=== PATIENT | male | born 1990 | race Caucasian/White ===

== ENCOUNTER 2019-06-04 06:44 | Day surgery (SDC) | payer OTHER ==
[2019-06-04] MEDS ORDERED: Lidocaine 2% 5 ML SDV IV ONE (06:45)
[2019-06-04] MEDS ORDERED: Propofol 200 MG/20 ML SDV IV ONE (06:45)
[2019-06-04] MEDS ORDERED: Sodium Chloride 0.9% 10 ML Syringe FLUSH PRN (06:45)
[2019-06-04] MEDS ORDERED: Lactated Ringers 1,000 ML IV SCH (06:45)
--- NOTE | 2019-06-04 08:56 | PCM.OPNOTE ---
- General Post-Op/Procedure Note Date of Surgery/Procedure: 06/04/19 Operative Procedure(s): egd with bx Findings: gastritis esophagitis with irregular z line Pre Op Diagnosis: gerd Post-Op Diagnosis: gastritis. esophagitis with irregular z line Anesthesia Technique: MAC Primary Surgeon: Venkatesh Disla Anesthesia Provider: Unique Kaplan Pathology: stomach and esophagus Complications: None Condition: Good Free Text/Narrative:: see dictation
--- NOTE | 2019-06-04 13:51 | OR ---
DATE OF OPERATION: 06/04/2019 SURGEON: Venkatesh Disla MD PROCEDURE PERFORMED: Esophagogastroduodenoscopy with cold forceps biopsy. PREOPERATIVE DIAGNOSIS: Longstanding history of gastroesophageal reflux disease. POSTOPERATIVE DIAGNOSIS: Gastritis, esophagitis, with an irregular Z-line. INDICATIONS FOR PROCEDURE: This is a 29-year-old white male who presents with the above-mentioned complaints. He was offered and accepted an upper endoscopy. DESCRIPTION OF PROCEDURE: After an excellent IV sedation was administered, the bite block was inserted and flexible endoscope was passed without difficulty down the patient's esophagus. Stomach was insufflated. Scope passed through the pylorus to the second portion of duodenum and slowly withdrawn. The following findings were noted: Duodenum was unremarkable. Stomach demonstrated some mild gastritis especially in the epigastrium. GE junction measured at 40 cm. There appears to be some esophagitis, as well as some intestinal metaplasia, with an irregular Z-line extending approximately a centimeter above. Several biopsies were taken circumferentially. The remainder of the esophageal exam was unremarkable. Stomach was deflated, and the scope was removed. Patient tolerated the procedure well and was taken to recovery. /[id number] /MODL
== END 2019-06-04 09:15 | disposition home or self-care (01) ==
LOC: FB.SDS 06:44
PROVIDERS: ATTEND Surgery
DX: K21.0 Gastro-esophageal reflux disease with esophagitis (principal); K29.50 Unspecified chronic gastritis without bleeding; K22.8 Other specified diseases of esophagus; Z88.0 Allergy status to penicillin; Z79.899 Other long term (current) drug therapy
CPT/HCPCS: 00731; 43239; 88305; 88313; 88342; J2001; J2704; J7120

== ENCOUNTER 2019-06-12 17:31 | Emergency (ER) | payer OTHER ==
[2019-06-12] MEDS ORDERED: Acetaminophen/HYDROcodone 325-5 MG Tab PO ONE (17:32)
[2019-06-12] MEDS ORDERED: Sodium Chloride 0.9% 10 ML Syringe FLUSH PRN (17:40)
[2019-06-12] MEDS ORDERED: Ketorolac 30 MG/ML SDV IVPUSH ONE (17:41)
[2019-06-12] MEDS ORDERED: Ondansetron 4 MG/2 ML SDV IVPUSH ONE (17:41)
[2019-06-12] MEDS ORDERED: Sodium Chloride 0.9% 1,000 ML IV ONE (17:41)
[2019-06-12] MEDS ORDERED: HYDROmorphone 2 MG/ML SDV IVPUSH ONE (17:41)
--- NOTE | 2019-06-12 17:52 | EDM.PDOC ---
ED HPI GENERAL MEDICAL PROBLEM - General Stated Complaint: KIDNEY STONE? Time Seen by Provider: 06/12/19 17:38 Source of Information: Reports: Patient History Limitations: Reports: No Limitations - History of Present Illness INITIAL COMMENTS - FREE TEXT/NARRATIVE: 29-year-old male with history of recent right-sided kidney stone that was removed 2 weeks ago at [facility] in [facility]. He had a stent placed at that time and today at approximately 3 PM he had the stent removed at [facility] in [place]. He states he had some mild discomfort initially in his back but it was not really significant nor was it much more than he had had before with the stent in place. He was able to urinate after this stent was removed and had no problems with that. Approximately 4:30 PM, developed pain in his right mid back and flank area that was similar to the pain that he had had with his kidney stone before. It quickly became quite severe with a 10/10 level of pain at its worst. It was a dull aching pain with sharp spikes of pain. It was colicky in nature. He had no nausea or vomiting associated with this. He was having pretty profuse diaphoresis associated with this. No fevers or chills. He had had no symptoms prior to this. There are no other associated signs or symptoms. There are no other modifying factors. 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) (Nothing) - Related Data Allergies Allergy/AdvReac Type Severity Reaction Status Date / Time amoxicillin Allergy Anaphylactic Verified 06/04/19 07:09 Shock Penicillins Allergy Wheezing Verified 06/04/19 07:09 Home Meds: Home Meds Acetaminophen 1,000 mg PO Q4H PRN 06/03/19 [History] Omeprazole 10 mg PO DAILY 06/03/19 [History] Hydrocodone/Acetaminophen [[place] 5-325 Tablet] 1 - 2 tab PO Q6H PRN #6 tablet [Rx] Past Medical History Gastrointestinal History: Reports: GERD Genitourinary History: Reports: Renal Calculus Psychiatric History: Reports: Anxiety - Past Surgical History GI Surgical History: Reports: EGD Female Surgical History: Reports: Cystoscopy (With stent placed), Kidney stone extraction Social & Family History - Tobacco Use Smoking Status *Q: Current Every Day Smoker - Caffeine Use Caffeine Use: Reports: None - Alcohol Use Alcohol Use History: Yes Alcohol Use Frequency: Socially ("Weekends") - Living Situation & Occupation Living situation: Reports: Occupation: Employed ED ROS GENERAL - Review of Systems Review Of Systems: See Below Constitutional: Reports: Diaphoresis HEENT: Reports: No Symptoms Respiratory: Reports: No Symptoms Cardiovascular: Reports: No Symptoms GI/Abdominal: Reports: No Symptoms : Reports: Flank Pain (Right upper flank and mid back) Musculoskeletal: Reports: Back Pain (Righted back pain) Skin: Reports: Diaphoresis Neurological: Reports: No Symptoms Hematologic/Lymphatic: Reports: No Symptoms Immunologic: Reports: No Symptoms ED EXAM, RENAL/ - Physical Exam Exam: See Below Exam Limited By: No Limitations General Appearance: Alert, WD/WN, Moderate Distress (to severe distress) Eye Exam: Bilateral Eye: EOMI, Normal Inspection, PERRL Ears: Normal External Exam, Hearing Grossly Normal Nose: Normal Inspection, Normal Mucosa, No Blood Throat/Mouth: Normal Inspection, Normal Oropharynx, Normal Voice, No Airway Compromise Head: Atraumatic, Normocephalic Neck: Normal Inspection, Supple, Non-Tender, Full Range of Motion Respiratory/Chest: No Respiratory Distress, Lungs Clear, Normal Breath Sounds, No Accessory Muscle Use, Chest Non-Tender Cardiovascular: Normal Peripheral Pulses, Regular Rate, Rhythm, No JVD GI/Abdominal: Normal Bowel Sounds, Soft, Non-Tender, No Mass Back Exam: Normal Inspection, Full Range of Motion. No: CVA Tenderness (R), CVA Tenderness (L) Extremities: Normal Inspection, Normal Range of Motion, Non-Tender, No Pedal Edema, Normal Capillary Refill Neurological: Alert, Oriented, CN II-XII Intact, Normal Cognition, No Motor/ Sensory Deficits Psychiatric: Normal Affect Skin Exam: Warm, Intact, Normal Color, No Rash, Diaphoretic Course - Vital Signs Last Recorded V/S: Last Vital Signs Temp 37.1 C 06/12/19 17:31 Pulse 64 06/12/19 17:31 Resp 18 12/20/19 17:31 BP 132/75 06/12/19 17:31 Pulse Ox 98 06/12/19 17:31 - Orders/Labs/Meds Orders: Active Orders 24 hr Category Date Time Status Abdomen Pelvis wo Cont [CT] Stat Exams 06/12/19 18:18 Ordered Chest Abdomen Pelvis wo Cont [CT] Stat Exams 06/12/19 18:11 Stop Req Sodium Chloride 0.9% [Saline Flush] Med 06/12/19 17:40 Active 10 ml FLUSH ASDIRECTED PRN Peripheral IV Insertion Adult [OM.PC] Routine Oth 06/12/19 17:40 Ordered Medication Orders Sodium Chloride (Saline Flush) 10 ml FLUSH ASDIRECTED PRN PRN Reason: Keep Vein Open Labs: Laboratory Tests 06/12/19 06/12/19 06/12/19 Range/Units 17:51 17:51 18:12 WBC 10.2 (4.5-12.0) X10-3/uL RBC 5.48 (4.30-5.75) x10(6)uL Hgb 15.8 (13.5-17.8) g/dL Hct 47.0 (30.0-51.3) % MCV 85.7 (80-96) fL MCH 28.7 (27.7-33.6) pg MCHC 33.5 (32.2-35.4) g/dL RDW 11.6 (11.5-15.5) % Plt Count 409 H (125-369) X10(3)uL MPV 7.1 L (7.4-10.4) fL Neut % (Auto) 46.7 (46-82) % Lymph % (Auto) 41.9 H (13-37) % [place] % (Auto) 8.1 (4-12) % Eos % (Auto) 3 (1.0-5.0) % Baso % (Auto) 1 (0-2) % Neut # (Auto) 4.7 (1.6-8.3) # Lymph # (Auto) 4.3 (0.6-5.0) # [place] # (Auto) 0.8 (0.0-1.3) # Eos # (Auto) 0.3 (0.0-0.8) # Baso # (Auto) 0.1 (0.0-0.2) # Sodium 141 (135-145) mmol/L Potassium 4.2 (3.5-5.3) mmol/L Chloride 104 (100-110) mmol/L Carbon Dioxide 22 (21-32) mmol/L BUN 19 H (7-18) mg/dL Creatinine 1.1 (0.70-1.30) mg/dL Est Cr Clr Drug Dosing TNP Estimated GFR (MDRD) > 60 (>60) BUN/Creatinine Ratio 17.3 (9-20) Glucose 95 (80-116) mg/dL Calcium 9.4 (8.6-10.2) mg/dL Total Bilirubin 0.4 (0.1-1.3) mg/dL AST 12 (5-25) IU/L ALT 25 (12-36) U/L Alkaline Phosphatase 100 (56-112) IU/L Total Protein 7.8 (6.0-8.0) g/dL Albumin 4.2 (3.5-5.2) g/dL Globulin 3.6 g/dL Albumin/Globulin Ratio 1.2 Urine Color Yellow (YELLOW) Urine Appearance Clear (CLEAR) Urine pH 6.0 (5.0-6.5) Ur Specific [place] 1.015 (1.010-1.025) Urine Protein 30 H (NEGATIVE) mg/dL Urine Glucose (UA) Normal (NORMAL) mg/dL Urine Ketones Negative (NEGATIVE) mg/dL Urine Occult Blood Large H (NEGATIVE) Urine Nitrite Negative (NEGATIVE) Urine Bilirubin Negative (NEGATIVE) Urine Urobilinogen Normal (NEGATIVE) mg/dL Ur Leukocyte Esterase Negative (NEGATIVE) Urine RBC 30-40 H (0-5) Urine WBC 0-5 (0-5) Ur Squamous Epith Cells Few H (NS,R,O) Urine Bacteria Few H (NS) Meds: Medications Generic Name Dose Route Start Last Admin Trade Name Freq PRN Reason Stop Dose Admin Sodium Chloride 10 ml 06/12/19 17:40 Saline Flush FLUSH ASDIRECTED PRN Keep Vein Open Discontinued Medications Generic Name Dose Route Start Last Admin Trade Name Freq PRN Reason Stop Dose Admin Hydromorphone HCl 1 mg 06/12/19 17:41 06/12/19 17:48 Dilaudid IVPUSH 06/12/19 17:42 1 mg ONETIME ONE Administration Sodium Chloride 1,000 mls @ 999 mls/hr 06/12/19 17:41 06/12/19 17:45 Normal Saline IV 06/12/19 18:41 999 mls/hr .BOLUS ONE Administration Ketorolac Tromethamine 30 mg 06/12/19 17:41 06/12/19 17:47 Toradol IVPUSH 06/12/19 17:42 30 mg ONETIME ONE Administration Ondansetron HCl 4 mg 06/12/19 17:41 06/12/19 17:47 Zofran IVPUSH 06/12/19 17:42 4 mg ONETIME ONE Administration - Radiology Interpretation Free Text/Narrative:: CT scan of abdomen and pelvis showed moderate hydronephrosis on the right with some stranding around the ureter. There was no evidence of ureteral stone. There is nephrolithiasis on the right side. - Re-Assessments/Exams Free Text/Narrative Re-Assessment/Exam: 06/12/19 19:34: The patient had an IV established and was given IV normal saline as a bolus 1 L with Dilaudid 1 mg IV, Toradol 30 mg IV and Zofran 4 mg IV. At this point he is essentially pain-free with only twinges of pain that go up to a 2-3/10. His blood tests are reassuring. His urine test shows some blood but no evidence of infection. The CT scan of his abdomen and pelvis shows no evidence of recurrent stone but it does show moderate hydronephrosis. I discussed the patient's case with Dr. Zazueta, urologist who performed the procedure this afternoon, and he feels that pain of this manner is common post stent removal for the first 48 hours. I reviewed the laboratory tests and the CT scan results with Dr. Zazueta and he felt that no imaging was necessary at this point. He recommended discharging the patient with pain medication and if the patient continues to have pain or problems greater than 48 hours or have his pain worsens, he should present to [facility] for further evaluation. Departure - Departure Time of Disposition: 19:45 Disposition: Home, Self-Care 01 Condition: Good (Improved) Clinical Impression: Renal colic on right side - Discharge Information Prescriptions: Hydrocodone/Acetaminophen [[place] 5-325 Tablet] 1 - 2 tab PO Q6H PRN #6 tablet PRN Reason: Moderate to severe pain Instructions: Renal Colic, [id number] Additional Instructions: Your blood tests were reassuringly normal. Your urine test showed some evidence of blood which is to be expected. The CT scan of your abdomen and pelvis showed some dilation of the ureter on the right side but no evidence of recurrent kidney stone in the ureter. You do have a stone in your right kidney but that is not causing any problems at this point. It is likely that you had either spasm of your ureter or a blood clot form which transiently stopped up your right ureter like a kidney stone would and caused your pain. You should increase your fluid intake. You may take ibuprofen 600-800 mg by mouth every 6- 8 hours as needed for pain. Medication as prescribed (hydrocodone 5/325 and a take home pack of 4 tablets and a prescription of 6 tablets was given to the patient). If your pain persist into Saturday, you should call the urologist at [facility], Dr. Zazueta. If you are having significant pain that is not controlled with the hydrocodone and ibuprofen, fever, chills, you should go to [facility] emergency department for further evaluation and possible urologic intervention. Sepsis Event Note - Focused Exam Vital Signs: Vital Signs Temp Pulse Resp BP Pulse Ox 06/12/19 17:31 37.1 C 64 18 132/75 98 Date Exam was Performed: 06/12/19 Time Exam was Performed: 19:33 - My Orders Last 24 Hours: My Active Orders 06/12/19 17:40 Sodium Chloride 0.9% [Saline Flush] 10 ml FLUSH ASDIRECTED PRN Peripheral IV Insertion Adult [OM.PC] Routine 06/12/19 18:11 Chest Abdomen Pelvis wo Cont [CT] Stat 06/12/19 18:18 Abdomen Pelvis wo Cont [CT] Stat - Assessment/Plan Last 24 Hours: My Active Orders 06/12/19 17:40 Sodium Chloride 0.9% [Saline Flush] 10 ml FLUSH ASDIRECTED PRN Peripheral IV Insertion Adult [OM.PC] Routine 06/12/19 18:11 Chest Abdomen Pelvis wo Cont [CT] Stat 06/12/19 18:18 Abdomen Pelvis wo Cont [CT] Stat
--- NOTE | 2019-06-12 19:58 | CT ---
INDICATION: Right mid and flank pain lower rib area. Stent for kidneys stones removed today at [facility] at [address] ABDOMEN AND PELVIS WITHOUT CONTRAST: Spiral 2.5 mm axial sections were obtained through the abdomen and pelvis with sagittal and coronal reconstructions. Examination was obtained 06/12/19 - no comparisons. Total exam DLP was 491.58 mGy-cm. The lower lung victor and pleural spaces visualized show no active infiltrate or effusion. The heart is normal in size. No pericardial effusion was seen. The liver, gallbladder, adrenal glands, spleen, pancreas, and retroperitoneum appear essentially normal, except to note some mild retroperitoneal lymphadenopathy which is nonspecific. The left kidney had a fairly normal appearance except for 2 very tiny calcific- appearing foci, which may represent very tiny renal calculi mid pole area of the left kidney. No obstructive uropathy on the left was seen. On the right, there is pyelocaliectasis and ureterectasis with renal fascial thickening and with periureteral fat stranding down to the urinary bladder. However, no calcified calculus could be identified. Question the possibility of a blood clot producing obstructive uropathy since no calcific change was seen. The possibility that the hydronephrosis and hydroureter are present due to the previous obstruction and will involute eventually, would be a consideration. In the right kidney, there is noted a small calculus most likely in a cherri of the mid pole anterolateral cortex area, which is not obstructive. Urinary bladder wall appears thickened, suggesting possibility of cystitis. The prostate was not enlarged. No bladder calculi were seen. The appendix appeared normal, visualized on axial images 131-144. No evidence of free air or bowel obstruction was seen. IMPRESSION: 1. Hydronephrosis and hydroureter down to the urinary bladder; however, a definite calculus is not seen. Question possibility of obstruction due to a hematoma or postsurgical complication - edema, or noncalcified calculus. The hydronephrosis and hydroureter may also be a temporary finding post obstructive uropathy. 2. Thickening of the urinary bladder wall with air bubbles in the bladder, most likely on the basis of recent instrumentation. Cystitis could be present however. Report was called to Dr. Estrada at 1859 hours. [facility]
== END 2019-06-12 20:06 | disposition home or self-care (01) ==
LOC: FB.ED 17:31
DX: N13.2 Hydronephrosis with renal and ureteral calculous obstruction (principal); F17.200 Nicotine dependence, unspecified, uncomplicated; K21.9 Gastro-esophageal reflux disease without esophagitis; Z79.899 Other long term (current) drug therapy; Z88.0 Allergy status to penicillin
CPT/HCPCS: 36415; 74176; 80053; 81001; 85025; 96361; 96374; 96375; 99284; 99284-25; A9270-GY; J1170; J1885; J2405; J7030

== ENCOUNTER 2019-10-15 22:51 | Emergency (ER) | payer MEDICAID, OTHER ==
[2019-10-15] MEDS: Sodium Chloride 0.9% 10 ML Syringe FLUSH PRN ×2 (23:10→23:26)
[2019-10-15] MEDS ORDERED: Ketorolac 30 MG/ML SDV IVPUSH ONE (23:10)
[2019-10-15] MEDS ORDERED: Ketorolac 30 MG/ML SDV ONE (23:11)
[2019-10-15] MEDS ORDERED: Morphine 2 MG/ML Syringe IVPUSH ONE (23:19)
[2019-10-16] MEDS ORDERED: Morphine 2 MG/ML Syringe IVPUSH ONE (00:08)
[2019-10-16] MEDS: Sodium Chloride 0.9% 10 ML Syringe FLUSH PRN (00:15)
[2019-10-16] MEDS ORDERED: LORazepam 1 MG Tab PO ONE (01:07)
[2019-10-16] MEDS ORDERED: Cyclobenzaprine 10 MG Tab PO ONE (01:35)
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
== END 2019-10-16 01:49 | disposition home or self-care (01) ==
LOC: FB.ED 22:51
DX: S80.212A Abrasion, left knee, initial encounter (principal); Z88.1 Allergy status to other antibiotic agents; Z88.0 Allergy status to penicillin; F17.210 Nicotine dependence, cigarettes, uncomplicated; K21.9 Gastro-esophageal reflux disease without esophagitis; Z79.899 Other long term (current) drug therapy; V86.56XA Driver of dirt bike or motor/cross bike injured in nontraffic accident, initial encounter
CPT/HCPCS: 36415; 73110; 73130; 73562; 80053; 80305; 80307; 82150; 83690; 85025; 85610; 85730; 96374; 96375; 96376; 99284; A9270; J1885; J2270